=== PATIENT | female | born 1965 | race Caucasian/White ===

== ENCOUNTER 2025-03-13 15:00 | Emergency (ER) | payer OTHER ==
[~2025-03-13] VITALS: Ht 171.4 cm; Wt 76.8 kg
[2025-03-13] MEDS ORDERED: APRE30TA3 PO (15:28)
[2025-03-13] MEDS ORDERED: SYNT75TA PO (15:28)
[2025-03-13 20:11] VITALS: BP 131/62; TEMP 98; O2SAT 100
[2025-03-13] MEDS: KETOROLAC 30 MG/ML 1ML VIAL IM ONE (20:29)
== END 2025-03-13 20:54 | disposition home or self-care (01) ==
LOC: M ED 15:00
DX: S52.135A Nondisplaced fracture of neck of left radius, initial encounter for closed fracture (principal); V18.0XXA Pedal cycle driver injured in noncollision transport accident in nontraffic accident, initial encounter; M17.12 Unilateral primary osteoarthritis, left knee; M22.2X2 Patellofemoral disorders, left knee; M25.422 Effusion, left elbow; Z79.899 Other long term (current) drug therapy; Y92.007 Garden or yard of unspecified non-institutional (private) residence as the place of occurrence of the external cause; Y93.55 Activity, bike riding; Y99.9 Unspecified external cause status
CPT/HCPCS: 71101; 73080; 73564; 73610; 96372; 99283; J1885